=== PATIENT | female | born 1975 | race Caucasian/White ===

== ENCOUNTER → 2016-07-08 | Outpatient (CLI) | payer BC ==
[~2016-07-08] MED LIST: LORTAB 5/500 501 TAB PO; TREXALL5 MG PO; ZOFRAN 4MG T4 MG/TAB PO; [UNRECOGNIZED DRUG - OTHER] PO
== END ==
LOC: COL.RAD 09:39
DX: R19.03 Right lower quadrant abdominal swelling, mass and lump (principal)

== ENCOUNTER → 2019-06-08 | Outpatient (CLI) | payer BC | LOC: MC.RAD 09:03 | DX: Z12.31 Encounter for screening mammogram for malignant neoplasm of breast (principal) ==

== ENCOUNTER → 2020-07-25 | Outpatient (CLI) | payer BC | LOC: MC.RAD | DX: Z12.31 Encounter for screening mammogram for malignant neoplasm of breast (principal); N64.89 Other specified disorders of breast ==

== ENCOUNTER → 2020-08-04 | Outpatient (CLI) | payer BC | LOC: MC.RAD 08:56 | DX: N64.89 Other specified disorders of breast (principal) ==

== ENCOUNTER 2021-11-24 17:21 | Emergency (ER) | payer BC ==
[~2021-11-24] VITALS: Ht 177.8 cm; Wt 77.3 kg
[2021-11-24 18:01] LABS: BASO % 0.3 % (0.0-2.0); EOS % 0.2 % (0.0-4.0); GRAN # 7.7 K/mm3 (1.4-6.5); GRAN % 84.1 % (42.2-75.2); HEMATOCRIT 40.7 % (37.0-47.0); HEMOGLOBIN 13.6 g/dl (12.5-16.0); LYMPH % 11.1 % (20.0-51.0); MEAN CELL VOLUME 92 fl (80.0-100.0); MEAN CORPUSCULAR HEMOGLOBIN 31 pg (27-31); MEAN CORPUSCULAR HGB CONC 33 g/dl (33.0-37.0); MEAN PLATELET VOLUME 9.3 fl (7.4-10.4); MONO # 0.4 K/mm3 (0.1-0.6); PLATELET COUNT 281 K/mm3 (130-400); RED BLOOD COUNT 4.41 M/mm3 (4.10-5.30); REDCELL DISTRIBUTION WIDTH-CV 11.9 % (11.5-14.5)
[2021-11-24 18:15] LABS: ALBUMIN 4.6 gm/dL (3.5-5.0); BILIRUBIN,TOTAL 0.6 mg/dL (0.2-1.2); CALCIUM 9.3 mg/dL (8.4-10.2); CREATININE, serum 0.76 mg/dL (0.57-1.11); POTASSIUM 4.1 mmol/L (3.5-4.5); TOTAL PROTEIN 7.7 gm/dL (6.2-8.1)
[2021-11-24] MEDS ORDERED: FLOMAX 0.40.4 MG/CAP PO ×2 (19:16)
[2021-11-24] MEDS ORDERED: PERCOCET 325 MG1 TA2 PO ×2 (19:16)
[2021-11-24 19:19] LABS: COLLECTION METHOD CLEAN CATCH
[2021-11-24 19:32] LABS: MUCOUS Present (NOT PRESENT); PH 7 (5-8); SQUAMOUS EPITHELIAL 0-2 /hpf (0-10); URINE APPEARANCE Clear (CLEAR/HAZY); URINE BACTERIA None Seen /hpf (NONE SEEN); URINE BILIRUBIN Negative (NEGATIVE); URINE BLOOD 3+ (NEGATIVE); URINE COLOR Yellow (YELLOW); URINE GLUCOSE Negative (NEGATIVE); URINE KETONE 1+ (NEGATIVE); URINE LEUKOCYTE ESTERASE Negative (NEGATIVE); URINE NITRATE Negative (NEGATIVE); URINE PROTEIN(semi-quant) Negative (NEGATIVE); URINE RBC >50 /hpf (0-2); URINE UROBILINOGEN Negative (NEGATIVE)
[2021-11-24 19:45] VITALS: BP 101/75; PULSE 61
[2021-11-25] MEDS ORDERED: PERCOCET 325 MG1 TA2 PO (14:42)
[2021-11-25] MEDS ORDERED: FLOMAX 0.40.4 MG/CAP PO (14:42)
== END 2021-11-24 19:53 | disposition home or self-care (01) ==
LOC: COL.ER 17:21
PROVIDERS: Physician Assistant
DX: N13.2 Hydronephrosis with renal and ureteral calculous obstruction (principal); Z32.02 Encounter for pregnancy test, result negative
CPT/HCPCS: J1885; J2270; J2405; J7030; Q9967

== ENCOUNTER 2021-11-26 16:52 | Observation (INO) | payer BC ==
[~2021-11-26] VITALS: Ht 177.8 cm; Wt 79.2 kg
[~2021-11-26 16:52] MED LIST changes: +FLOMAX 0.40.4 MG/CAP PO; +PERCOCET 325 MG1 TA2 PO
[2021-11-26 17:00] VITALS: BP 107/68; PULSE 63; TEMP 97.5
--- NOTE | 2021-11-26 17:00 | NUR ---
PATIENT IS A DIRECT ADMIT FROM THE UROLOGY OFFICE WITH LEFT KIDNEY STONE. NPO FOR PENDING SURGERY TONIGHT AROUND 1800. RN STARTED 20 GAUZE IV WITH PRE-OP FLUIDS INFUSING VIA GRAVITY. ORDERS AND CONSENT OBTAINED.
[2021-11-26] MEDS ORDERED: SYNTHROID0.075 MG/T PO (17:45)
[2021-11-26] MEDS ORDERED: NEURONTIN100 MG/CAP PO (17:46)
[2021-11-26] MEDS ORDERED: HUMIRA PEN40 MG/0.4 SQ (17:47)
[2021-11-26] MEDS ORDERED: ZOLOFT 50MG50 MG PO (17:48)
[2021-11-26] MEDS ORDERED: AZULFIDINE500 MG/TAB PO (17:48)
[2021-11-26] MEDS ORDERED: PLAQUENIL 200M200 MG PO (17:48)
--- NOTE | 2021-11-26 17:53 | NUR ---
PATIENT GOING DOWN TO OR VIA BED WITH FRIEND AT BEDSIDE. CONSENT ON CHART. PATIENT HAS NOT HAD A HYSTER BUT REPORTS SHE HASN'T HAS A PERIOD IN YEARS. NOTIFIED OR, SEE SIGNED FORM ON CHART. PRE-OP FLUIDS INFUSING VIA PUMP INTO RIGHT HAND IV. HEAD TO TOE ASSESSMENT COMPLETE. PATIENTS IS ON HIS WAY. PATIENT NOW OFF FLOOR.
[2021-11-26] MEDS ORDERED: PYRIDIUM 100MG100 MG PO (18:11)
[2021-11-26 19:25] VITALS: BP 108/67; PULSE 69; TEMP 98
[2021-11-26 19:40] VITALS: BP 104/62; PULSE 63; TEMP 98
[2021-11-26 19:55] VITALS: BP 112/74; PULSE 69; TEMP 98.1
[2021-11-26 20:10] VITALS: BP 119/63; PULSE 73; TEMP 98.1
[2021-11-26 20:40] VITALS: BP 104/60; PULSE 80; TEMP 98
--- NOTE | 2021-11-26 21:24 | NUR ---
PATIENT UP TO ROOM 322 AT 1925. ALERT AND ORIENTED. AMBULATED WITH 1 ASSIST TO BATHROOM AND VOIDED 600 MLS OF BLOODY URINE. PATIENT TOLERATED PO FOOD AND FLUIDS WITHOUT ISSUE. POST OP VITALS STABLE. DENYING PAIN. IV TO R HAND DC'D, CATHETER INTACT, BANDAID APPLIED. PATIENT EDUCATION DONE AND PRINTED FOR PATIENT. DISCHARGE PAPERWORK COMPLETED. PATIENT AMBULATED OUT VIA WHEELCHAIR BY SURGICAL STAFF WITH FAMILY TO HOME. PATIENT DISCHARGED AT 2100, CRITERIA MET.
== END 2021-11-26 21:00 | disposition home or self-care (01) ==
LOC: SURG 16:52 → SDCO 16:52 → SURG 17:00
PROVIDERS: ADMIT Urology
DX: N13.2 Hydronephrosis with renal and ureteral calculous obstruction (principal)
CPT/HCPCS: C1769; C2617; G0378; J0690; J1100; J1885; J2405; J2704; J3010; J7030; Q9967

== ENCOUNTER → 2023-08-05 | Outpatient (CLI) | payer BC ==
[~2023-08-05] MED LIST changes: +AZULFIDINE500 MG/TAB PO; +HUMIRA PEN40 MG/0.4 SQ; +NEURONTIN100 MG/CAP PO; +PLAQUENIL 200M200 MG PO; +PYRIDIUM 100MG100 MG PO; +SYNTHROID0.075 MG/T PO; +ZOLOFT 50MG50 MG PO
== END ==
LOC: MC.RAD 08:23
DX: Z12.31 Encounter for screening mammogram for malignant neoplasm of breast (principal)